=== PATIENT | female | born 1995 | race Hispanic/Latino ===

== ENCOUNTER 2016-08-14 14:38 | Emergency (ER) | payer OTHER ==
[2016-08-14] MEDS ORDERED: FLEXERIL PO ONE (19:44)
[2016-08-14] MEDS ORDERED: MOTRIN PO ONE (19:44)
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
[2016-08-14 21:21] VITALS: BP 137/93
== END 2016-08-14 21:40 | disposition home or self-care (01) ==
LOC: ED 14:38
DX: M79.1 Myalgia (principal); I10 Essential (primary) hypertension; Z88.2 Allergy status to sulfonamides; V49.59XA Passenger injured in collision with other motor vehicles in traffic accident, initial encounter; Y93.89 Activity, other specified; Y99.8 Other external cause status; Y92.89 Other specified places as the place of occurrence of the external cause
CPT/HCPCS: 99282